=== PATIENT | male | born 1955 | race Caucasian/White ===

== ENCOUNTER 2020-06-05 14:46 | Outpatient (CLI) | payer MEDICARE, OTHER, SELFPAY ==
--- NOTE | 2020-06-05 14:52 | MR_ITS ---
WS: [id number] MRI RIGHT KNEE NONCONTRAST TECHNIQUE: Axial PD, coronal PD fat sat, coronal PD, sagittal PD, and sagittal PD fat-sat images obta ined. CLINICAL INFORMATION: RIGHT KNEE PAIN COMPARISON: None. FINDINGS: Distal quadriceps and patella tendons are intact. Hypertrophic patella. Normal ACL and PCL. Prepatell ar and infrapatellar soft tissue edema. Small lobulated popliteal cyst. Normal lateral meniscus. Acut e appearing tear involving the medial meniscal root with T2 signal abnormality and fluid. Blunting of the anterior and posterior horns. Normal lateral meniscus. Fluid and edema along the medial collateral ligament along the superficial and deep fibers consistent with grade 2 injury. MCL appears intact. Advanced chondromalacia patella. Small amount of subchondra l edema. MR/MR knee RT wo con* [id number] IMPRESSION: 1. Normal anterior and posterior cruciate ligaments. 2. Acute appearing tear involving the medial meniscus at the meniscal root wit h T2 signal abnormality and fluid. 3. Advanced chondromalacia patella with a small amount of subchondral edema. 4. Grade 2 injury involving the medial collateral ligament with edema. MCL and LCL appear intact. 5. Small lobulated popliteal cyst.
== END 2020-06-05 14:47 | disposition home or self-care (01) ==
LOC: RADSHAW 14:51
PROVIDERS: PCP Family Medicine; Visit Provider Family Medicine
DX: M71.21 Synovial cyst of popliteal space [Baker], right knee (principal); R60.0 Localized edema; M22.41 Chondromalacia patellae, right knee; S83.241A Other tear of medial meniscus, current injury, right knee, initial encounter; X58.XXXA Exposure to other specified factors, initial encounter
CPT/HCPCS: 73721

== ENCOUNTER 2020-11-14 12:42 | Outpatient (CLI) | payer MEDICARE, OTHER, SELFPAY ==
[2020-11-14 13:00] VITALS: BP 123/74; PULSE 80; RESP 16; TEMP 36.7; O2SAT 98; BMI 27.1
[2020-11-14 13:22] VITALS: BP 115/69; PULSE 64; RESP 18; O2SAT 95
[2020-11-14 14:22] VITALS: BP 119/61; PULSE 72; RESP 16; TEMP 36.8; O2SAT 93
--- NOTE | 2020-11-23 15:26 | DCPLANNER ---
product management manager had message that patient received the monoclonal antibody infusion. product management manager called phone number [phone], unable to speak with patient at this time, a voicemail was left for patient.
== END 2020-11-14 12:43 | disposition home or self-care (01) ==
LOC: OPS 13:04
PROVIDERS: PCP Family Medicine; Visit Provider Family Medicine
DX: U07.1 COVID-19 (principal)
CPT/HCPCS: 96365

== ENCOUNTER → 2021-11-24 12:14 | Outpatient (BNVA) | payer MEDICARE, OTHER, SELFPAY | PROVIDERS: PCP Family Medicine; Visit Provider Nurse Practitioner | DX: J06.9 Acute upper respiratory infection, unspecified (principal) | CPT/HCPCS: 87400; 87426 ==

== ENCOUNTER 2022-09-18 12:11 | Emergency (ER) | payer MEDICARE, OTHER, SELFPAY ==
[2022-09-18 12:13] VITALS: BP 147/87; PULSE 74; RESP 18; TEMP 36.7; O2SAT 94; BMI 27.5
--- NOTE | 2022-09-18 12:34 | XRR_ITS ---
PROCEDURE INFORMATION: Exam: XR Chest Exam date and time: 09/18/2022 12:45 PM Age: 67 years old Clinical indication: Angina; Additional info: Cpdora TECHNIQUE: Imaging protocol: Radiologic exam of the chest. Views: 1 view. COMPARISON: No relevant prior studies available. FINDINGS: Lungs: Unremarkable. No consolidation. Pleural spaces: Unremarkable. No pleural effusion. No pneumothorax. Heart/Mediastinum: Unremarkable. No cardiomegaly. Bones/joints: Unremarkable. XR/XR chest 1V portable [id number] IMPRESSION: No acute findings.
--- NOTE | 2022-09-18 12:34 | ECG_ITS ---
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 Measurements Intervals [place] Rate: 59 P: 68 FL: 215 QRS: -1 QRSD: 102 T: 44 QT: 407 QTc: 405 Interpretive Statements SINUS BRADYCARDIA WITH FIRST DEGREE AV BLOCK INCOMPLETE RIGHT BUNDLE BRANCH BLOCK [90+ ms QRS DURATION, TERMINAL R IN V1/V2, 40+ ms S IN I/aVL/V4/V5/V6] No previous ECG available for comparison Electronically Signed On 09-18-2022 15:01:59 CDT by Jesús Mark M.D. [email or web address] [email or web address] [email or web address]. john of [facility] [email or web address].[email or web address]/store/NU/[id number] f
[2022-09-18 12:52] LABS: Basophils # 0.1 10^3/uL (0.0-0.1); Basophils % 0.9 %; Eosinophils # 0.3 10^3/uL (0.0-0.8); Eosinophils % 4.6 %; Hematocrit 42.5 % (42.0-52.0); Hemoglobin 14.4 g/dL (11.7-16.6); Lymphocytes % 30.5 %; Mean Corpuscular HGB Conc 33.9 g/dL (30.0-36.0); Mean Corpuscular Hemoglobin 30.2 pg (28.0-34.0); Mean Corpuscular Volume 89.1 fl (80-94); Mean Platelet Volume 9.9 fL (7.4-10.4); Monocytes # 0.5 10^3/uL (0.2-0.9); Monocytes % 7.8 %; Neutrophils # 3.73 10^3/uL (1.8-7.7); Neutrophils % 55.9 %; Nucleated Red Blood Cells % 0 %; Platelet Count 220 10^3/cmm (130-400); Red Blood Count 4.77 10^6/uL (4.1-5.3); Red Cell Distribution Width 12.4 % (12.1-15.1); White Blood Count 6.7 10^3/uL (4.0-10.0)
--- NOTE | 2022-09-18 12:55 | ED_ITS ---
HPI - Chest Pain General: Chief Complaint: Chest Pain Stated Complaint: dizziness, chest pain, fatigue Time Seen by Provider: 09/18/22 12:34 History of Present Illness: Patient is a 67-year-old male that comes to the ED with chest pain, lightheadedness and fatigue. Past medical history of hypertension. Patient states that last night while at rest he started developing some mild chest pain on the left side of his chest. He went to bed and it resolved. He woke up this morning and was feeling fine. He then went and walked 2 miles every morning and then was doing another workout routine. During the workout routine he started feeling lightheaded and was having some mild left-sided chest pain again. He says it resolved before coming to the ED but he has occasional very brief episodes of left-sided chest pain over the past hour. Denies any active chest pain while here in the ED. Denies any shortness of breath. Patient says he did not have any diaphoresis, palpitations, nausea or vomiting during episode. Denies any cardiac history. Patient does endorse feeling more fatigued over the past couple days. Associated symptoms: Deny abdominal pain, dyspnea, fever(s), nausea, palpitations or vomiting Review of Systems Const: Reports: fatigue; Denies: fever(s) or chills Eyes: Denies: change in vision or eye discomfort ENMT: Denies: throat pain, odynophagia, nasal discharge or nasal congestion Card: Reports: chest pain and lightheadedness; Denies: palpitations, edema, swelling of feet/ankles, dyspnea on exertion or orthopnea Resp: Denies: dyspnea, productive cough or non-productive cough GI: Denies: abdominal pain, nausea, vomiting, diarrhea, constipation or hematochezia : Denies: flank pain, difficulty urinating, dysuria or hematuria Musc: Denies: neck pain, back pain or extremity swelling Skin/Breast: Denies: rash or new lesions Neuro: Denies: headache(s), numbness in extremities or weakness in extremities PFS ED PFSH: Medical History COVID Hypertension Surgical History No pertinent past surgical history Social History Smoking and tobacco status: former smoker Physical Exam Const: COMMON NORMALS: no acute distress, patient oriented x3 and alert GENERAL APPEARANCE: cooperative and comfortable HENMT: COMMON NORMALS: normocephalic HEAD & SCALP: normocephalic MOUTH: Normal oral and palatal mucosa present THROAT: posterior oropharynx normal and uvula midline Eye: COMMON NORMALS: Equal, round and reactive pupils present and conjunctivae normal GENERAL EYE: appearance normal, both eyes and all related structures CONJUNCTIVA: Yes conjunctivae normal PUPIL: Yes Equal, round and reactive pupils present Neck/C-Spine: COMMON NORMALS: supple GENERAL: Yes normal visual inspection Chest: CHEST: No tenderness Resp: COMMON NORMALS: normal respiratory effort, No retractions, No use of accessory muscles and clear to auscultation bilaterally AUSCULTATION: clear to auscultation bilaterally Cardio: COMMON NORMALS: regular rate, regular rhythm, S1 normal heart sound present, S2 normal heart sound present, No gallops present (Cardio), No clicks present (Cardio), No murmurs present (Cardio) and Peripheral pulses 2+ throughout RATE: regular rate RHYTHM: regular rhythm HEART SOUNDS: S1 normal heart sound present and S2 normal heart sound present PERIPHERAL PULSES: Peripheral pulses 2+ throughout GI: COMMON NORMALS: Normal to inspection, nondistended, normoactive bowel elizabeth nds present, Soft to palpation, non-tender and no masses PALPATION: Yes Soft to palpation : COMMON NORMALS: Yes no CVA tenderness BLADDER/KIDNEY EXAM: Yes no CVA tenderness Back/Pelvis: COMMON NORMALS: no CVA tenderness Extremity: COMMON NORMALS: normal to inspection Neuro: COMMON NORMALS: patient oriented x3 SENSORIUM/ORIENTATION: Yes alert GAIT: Yes Normal gait present Skin: GENERAL SKIN EXAM: dry skin Course Vital Signs: Vital signs: Vital Signs Temperature 98.0 F 09/18/22 12:13 Pulse Rate 63 09/18/22 15:40 Respiratory Rate 14 09/18/22 15:40 Blood Pressure 128/83 09/18/22 15:40 Pulse Oximetry 98 09/18/22 15:40 Oxygen Delivery Me thod Room Air 09/18/22 14:12 MDM - Chest Pain Medical Decision Making Patient is a 67-year-old male that comes to the ED with chest pain, lightheadedness and fatigue. Past medical history of hypertension. Patient states that last night while at rest he started developing some mild chest pain on the left side of his chest. He went to bed and it resolved. He woke up this morning and was feeling fine. He then went and walked 2 miles every morning and then was doing another workout routine. During the workout routine he started feeling lightheaded and was having some mild left-sided chest pain again. He says it resolved before coming to the ED but he has occasional very brief episodes of left-sided chest pain over the past hour. Denies any active chest pain while here in the ED. Denies any shortness of breath. Patient says he did not have any diaphoresis, palpitations, nausea or vomiting during episode. Denies any cardiac history. Patient does endorse feeling more fatigued over the past couple days. Vital stable. Patient appears nontoxic in no acute distress or pain. Exam is benign. CBC and CMP is unremarkable. Chest x-ray shows no acute findings. EKG showed sinus bradycardia at [address] segment elevation or depression seen. Baseline troponin is 13 and 2-hour troponin was 11.9. BNP 36. heart score is 3 and he has not had any chest pain here in the ED. I placed an order with case management for patient to be set up with an outpatient sestamibi cardiac stress test. Patient was stable for discharge home and diagnosed with atypical chest pain. He was told to follow-up with his PCP in the next week for reevaluation. Return to ED precautions given. Patient under stood and agreed with plan. Lab Data I reviewed the patient's lab results. 09/18/22 12:38 09/18/22 12:38 Radiology Impressions Chest X-Ray 09/18/22 12:34 IMPRESSION: No acute findings. Laboratory Results WBC 6.7 10^3/uL (4.0-10.0) 09/18/22 12:38 RBC 4.77 10^6/uL (4.1-5.3) 09/18/22 12:38 Hgb 14.4 g/dL (11.7-16.6) 09/18/22 12:38 Hct 42.5 % (42.0-52.0) 09/18/22 12:38 MCV 89.1 fl (80-94) 09/18/22 12:38 MCH 30.2 pg (28.0-34.0) 09/18/22 12:38 MCHC 33.9 g/dL (30.0-36.0) 09/18/22 12:38 RDW 12.4 % (12.1-15.1) 09/18/22 12:38 Plt Count 220 10^3/cmm (130-400) 09/18/22 12:38 MPV 9.9 fL (7.4-10.4) 09/18/22 12:38 Neut % (Auto) 55.9 % 09/18/22 12:38 Lymph % (Auto) 30.5 % 09/18/22 12:38 Sumner % (Auto) 7.8 % 09/18/22 12:38 Eos % (Auto) 4.6 % 09/18/22 12:38 Baso % (Auto) 0.9 % 09/18/22 12:38 Neut # (Auto) 3.73 10^3/uL (1.8-7.7) 09/18/22 12:38 Lymph # (Auto) 2.0 10^3/uL (0.8-4.8) 09/18/22 12:38 Sumner # (Auto) 0.5 10^3/uL (0.2-0.9) 09/18/22 12:38 Eos # (Auto) 0.3 10^3/uL (0.0-0.8) 09/18/22 12:38 Baso # (Auto) 0.1 10^3/uL (0.0-0.1) 09/18/22 12:38 Nucleated RBC % (auto) 0 % 09/18/22 12:38 Nucleated RBCs # 0.0 /100WBC 09/18/22 12:38 Sodium 140 mmol/L (136-145) 09/18/22 12:38 Potassium 4.0 mmol/L (3.5-5.1) 09/18/22 12:38 Chloride 104 mmol/L (98-107) 09/18/22 12:38 Carbon Dioxide 24 mmol/L (22-29) 09/18/22 12:38 Anion Gap 16.0 (5-19) 09/18/22 12:38 BUN 15 mg/dL (8-23) 09/18/22 12:38 Creatinine 0.8 mg/dL (0.7-1.2) 09/18/22 12:38 GFR Calculation 96.1 mL/min (90-130) 09/18/22 12:38 Glucose 92 mg/dL (65-115) 09/18/22 12:38 Calculated Osmolality 290 mOsm/kg (285-295) 09/18/22 12:38 Calcium 9.4 mg/dL (8.5-10.5) 09/18/22 12:38 Total Bilirubin 0.3 mg/dL (0.15-1.2) 09/18/22 12:38 AST 18 U/L (0-40) 09/18/22 12:38 ALT 17 U/L (0-41) 09/18/22 12:38 Alkaline Phosphatase 66 U/L (40-130) 09/18/22 12:38 Troponin T Baseline 13 ng/L (0-15) 09/18/22 12:38 Troponin T 120 Minute 11.29 ng/L (0-15) 09/18/22 14:22 Delta Troponin T -1.71 ABS# (0-10) L 09/18/22 14:22 NT-Pro-B Natriuret Pep 36 pg/mL (0-125) 09/18/22 12:38 Total Protein 6.4 g/dL (6.6-8.7) L 09/18/22 12:38 Albumin 4.3 g/dL (3.5-5.2) 09/18/22 12:38 Globulin 2.1 g/dL (1.3-4.6) 09/18/22 12:38 Urine Color Light yellow (Yellow) 09/18/22 14:27 Urine Appearance Clear (CLEAR) 09/18/22 14:27 Urine pH 7 (5-7) 09/18/22 14:27 Ur Specific [place] 1.010 (1.005-1.030) 09/18/22 14:27 Urine Protein Neg (Negative) 09/18/22 14:27 Urine Glucose (UA) Norm (Normal) 09/18/22 14:27 Urine Ketones Negative (Negative) 09/18/22 14:27 Urine Blood Neg (Negative) 09/18/22 14:27 Urine Nitrate Negative (Negative) 09/18/22 14:27 Urine Bilirubin Neg (Negative) 09/18/22 14:27 Urine Urobilinogen Norm mg/dL (Negative) 09/18/22 14:27 Ur Leukocyte Esterase Negative (Negative) 09/18/22 14:27 EKG Data EKG 1: EKG interpretation date: 09/18/22 Interpretation: Sinus bradycardia, 59 bpm, possible first-degree AV block. No ST segment elevation or depression seen. Discharge Plan Discharge Patient Disposition: Home Clinical Impression: Atypical chest pain Condition: Stable Prescriptions: No Action valacyclovir 1 gram tablet 1,000 mg PO TID Qty: 21 0RF Rx Instructions: x 7 days for shingles prednisone 20 mg tablet 20 mg PO DAILY Qty: 5 0RF Rx Instructions: x 5 days for inflammation tamsulosin 0.4 mg capsule PO albuterol sulfate [ProAir HFA] 90 mcg/actuation HFA aerosol inhaler 2 puff inhalation Q6H PRN lisinopril 10 mg tablet 10 mg PO DAILY doxycycline hyclate 100 mg capsule 100 mg PO BID 10 Days Qty: 20 0RF lisinopril-hydrochlorothiazide 10-12.5 mg tablet See Rx Instructions .ROUTE .COMPLEX Qty: 90 3RF Dose Instruction: TAKE 1 TABLET BY MOUTH EVERY DAY Rx Instructions: TAKE 1 TABLET BY MOUTH EVERY DAY omeprazole 20 mg capsule,delayed release(DR/EC) See Rx Instructions .ROUTE .COMPLEX Qty: 180 3RF Dose Instruction: TAKE 1 CAPSULE BY MOUTH TWICE A DAY Rx Instructions: TAKE 1 CAPSULE BY MOUTH TWICE A DAY Discharge Orders: Discharge ED (Routine); Ordered 09/18/22 Ordered By: Izaiah Chandler Referrals: Janes Huffman, [Primary Care Provider] - Discharge Diet: Regular Discharge Activity: Increase activity as tolerated Patient Instructions: Chest Pain (ED), Noncardiac Chest Pain (ED) Activity Restrictions/Additional Instructions: Follow-up with medical provider as directed. Case management should contact you in the next several days to set up an appointment for an outpatient cardiac stress test. Continue taking all home medications as previously prescribed. Re turn to the ER or your medical provider if condition worsens. Please read and understand discharge instructions. Thank you for choosing [facility] for your healthcare needs today. Please realize this is an emergency room and that we are providing you with a medical screening exam and this may not be complete and all inclusive of all the testing and or work up that you may need to determine your ailment or severity of your illness. It is very important that you follow up as instructed or that you return to the Emergency Department should you have concerns or if your condition changes or worsens in any way. Coding Level of Care Code ED Equipment Operator/Laborer for Mic Dubois
[2022-09-18 13:14] LABS: Troponin(5th) Baseline 13 ng/L (0-15)
[2022-09-18 13:20] VITALS: BP 146/87; PULSE 53; RESP 13; O2SAT 97
[2022-09-18 13:22] LABS: Alanine Aminotransferase 17 U/L (0-41); Albumin Level 4.3 g/dL (3.5-5.2); Alkaline Phosphatase 66 U/L (40-130); Aspartate Amino Transferase 18 U/L (0-40); Blood Urea Nitrogen 15 mg/dL (8-23); Calcium 9.4 mg/dL (8.5-10.5); Carbon Dioxide 24 mmol/L (22-29); Chloride 104 mmol/L (98-107); Globulin 2.1 g/dL (1.3-4.6); Glomerular Filtration Rate 96.1 mL/min (90-130); Glucose 92 mg/dL (65-115); NT Pro B Type Natriuretic Pept 36 pg/mL (0-125); Osmolality Calculated 290 mOsm/kg (285-295); Sodium 140 mmol/L (136-145); Total Bilirubin 0.3 mg/dL (0.15-1.2); Total Protein 6.4 g/dL (6.6-8.7)
[2022-09-18 13:30] VITALS: BP 147/78; PULSE 57; RESP 12; O2SAT 96
[2022-09-18 14:12] VITALS: BP 145/89; PULSE 54; RESP 15; O2SAT 98
--- NOTE | 2022-09-18 14:34 | ECG_ITS ---
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 Measurements Intervals [place] Rate: 49 P: 58 HI: 228 QRS: -6 QRSD: 103 T: 32 QT: 428 QTc: 387 Interpretive Statements SINUS BRADYCARDIA WITH FIRST DEGREE AV BLOCK INCOMPLETE RIGHT BUNDLE BRANCH BLOCK [90+ ms QRS DURATION, TERMINAL R IN V1/V2, 40+ ms S IN I/aVL/V4/V5/V6] No previous ECG available for comparison Electronically Signed On 09-18-2022 15:01:27 CDT by Jesús Mark M.D. [email or web address]/store/[id number]
[2022-09-18 14:52] LABS: Add Urine Microscopic? NO; Charge for UA Resulting for Rev
[2022-09-18 14:58] LABS: Troponin 5 2HR 11.29 ng/L (0-15)
[2022-09-18 15:07] LABS: Troponin 5 2HR Delta -1.71 ABS# (0-10)
[2022-09-18 15:24] LABS: Urine Color Light yellow (Yellow)
[2022-09-18 15:25] LABS: Bilirubin Urine Neg (Negative); Blood Urine Neg (Negative); Glucose Urine UA Norm (Normal); Ketones Urine Negative (Negative); Leukocyte Esterase Urine Negative (Negative); Nitrate Urine Negative (Negative); Protein Urine Neg (Negative); Urine Appearance Clear (CLEAR); Urobilinogen Urine Norm (Negative); pH Urine 7 (5-7)
[2022-09-18 15:40] VITALS: BP 128/83; PULSE 63; RESP 14; O2SAT 98
--- NOTE | 2022-09-19 12:38 | PC.SOCIAL ---
Addendum entered by Kezia Pérez 10/03/22 16:27: Patient had an outpatient stress test scheduled for 10.02.22 - patient did attend appointment. Original Note: Orders for stress test faxed to [facility] scheduling at this time.
== END 2022-09-18 15:42 | disposition home or self-care (01) ==
PROVIDERS: Emergency Provider Physician Assistant; PCP Family Medicine
DX: R07.89 Other chest pain (principal); R00.1 Bradycardia, unspecified; R42 Dizziness and giddiness; R53.83 Other fatigue
CPT/HCPCS: 36415; 71045; 80053; 81003; 83880; 84484; 85025; 93005; 99285

== ENCOUNTER 2022-10-02 08:47 | Outpatient (CLI) | payer MEDICARE, OTHER, SELFPAY ==
[2022-10-02 09:25] VITALS: BMI 28.0
--- NOTE | 2022-10-02 09:26 | ECG_ITS ---
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 Interpretive Statements NAME OF STUDY: LEXISCAN SESTAMIBI STRESS TEST INDICATION: Chest Pain PROCEDURE: At the baseline, the EKG revealed normal sinus rhythm with normal ST Ts. The baseline heart was 51 bpm with a blood pressue of 144/79 mm of Hg Lexiscan was infused over a period of 20 seconds. A total of 0.4 milligrams of Lexiscan was infused. The stress phase was continued for a total of 5 minutes. Heart rate at the end of the stress phase was 74 bpm with a blood pressure 122/77 mm of Hg. The EKG at the peak infusion revealed no significant changes. Sestamibi was injected 20 seconds after the Lexiscan infusion. Heart rate at the end of the recovery phase was 73 bpm with a blood pressure of 126/79 mm of Hg. CONCLUSION: 1. No significant EKG changes with the LexiScan infusion 2. No LexiScan induced chest pain or cardiac arrhythmia 3. Normal blood pressure and heart rate response 4. Sestamibi/sestamibi perfusion scan pending; see separate report. Electronically Signed On 10-03-2022 17:59:45 CDT by Laurie Keene M.D. [id number]
--- NOTE | 2022-10-02 09:26 | NMCV_ITS ---
NM edgard perf SPECT r/s* 10003 TaurusJassi Age: 67 Gender: M : 1955 Exam Date: 10/02/2022 09:55 Ordering Phys: Izaiah Chandler Technologist: BRENDAN Mina Exam Location: [facility] Indications: Chest Pain STRESS TEST Please [facility] for [facility] IMAGE PROTOCOL Rest/Stress 1 Lexiscan Day Radiopharmaceutical Dose (mCi) Administration Site Administered by Rest: Tc-99m 11.0 IV BRENDAN Harris Sestamibi Stress:Tc-99m 32.6 IV BRENDAN Harris Sestamibi Rest: 02-Oct-2022 60 Discovery 630 Stress: 02-Oct-2022 30 Discovery 630 0.4mg Lexiscan. Images obtained in supine and prone position. SPECT RESULTS Technical Quality: Excellent Raw Data Analysis: Normal Image Corrections: No attenuation or motion correction applied Summed Stress Score: 0 Summed Rest Score: 4 Summed Difference Score: 0 PERFUSION FINDINGS Small area of decreased eccentric wear noted in the apical inferior and LV apex. No significant reversibility was noted in this region. FUNCTIONAL RESULTS (calculated via Gated SPECT) Stress Image LV EF (%): 57 Stress EDV (mL):170 TID: 1.08 Stress ESV (mL):73 FUNCTIONAL FINDINGS: Segmental wall motion analysis revealing no gross wall motion abnormalities IMPRESSIONS 1. Small area of persistent decreased tracer uptake in the apical inferior and LV apex suggesting myocardial scarring versus attenuation artifact 2. Normal LV ejection fraction of 57%. 3. LV wall motion analysis revealing no gross wall motion abnormalities. 4. Mildly dilated LV cavity -end-systolic volume was 73 mL Low probability for coronary ischemia, based on the above findings Dr Laurie Keene MD FACC (Electronically Signed) Final Date: 02 October 2022 17:51 S
[2022-10-02] MEDS: regadenoson 0.4 Mg/5 ml Syringe IVP (10:35)
[2022-10-02 10:45] VITALS: BP 128/75; PULSE 72
== END 2022-10-02 08:48 | disposition home or self-care (01) ==
LOC: CDL 08:48
PROVIDERS: PCP Family Medicine; Visit Provider Physician Assistant
DX: R07.9 Chest pain, unspecified (principal)
CPT/HCPCS: 36415; 78452; 93017; 96374; A9500; J2785

== ENCOUNTER → 2022-10-14 07:54 | Outpatient (BNVA) | payer MEDICARE, OTHER, SELFPAY | PROVIDERS: PCP Family Medicine; Visit Provider Family Medicine | DX: R42 Dizziness and giddiness (principal); H90.5 Unspecified sensorineural hearing loss; H93.13 Tinnitus, bilateral; R68.82 Decreased libido; R79.89 Other specified abnormal findings of blood chemistry; Z13.6 Encounter for screening for cardiovascular disorders; E03.9 Hypothyroidism, unspecified | CPT/HCPCS: 80053; 80061; 82040; 82607; 84270; 84403; 84443; 85025 ==

== ENCOUNTER 2022-11-12 09:19 | Outpatient (CLI) | payer MEDICARE, OTHER, SELFPAY ==
--- NOTE | 2022-11-12 09:30 | MR_ITS ---
WS: [id number] MRI HEAD WITH CONTRAST TECHNIQUE: Sagittal T1, T2 axial, T2 axial FLAIR, axial susceptibility weighted imaging, axial diffus ion weighted images, and coronal T2 images were obtained. Pre and post-T1 axial and post T1 coronal i mages. ADC and FSPGR images. CLINICAL INFORMATION: hearing loss, sensorineuronal COMPARISON: None. FINDINGS: Proximal 7th and 8th cranial nerves are normal in appearance. Normal trigeminal nerve root entry zone s. No evidence of enhancing IAC or CP angle mass. Paranasal sinuses are well aerated. Mastoid air sohail ls are well aerated. Normal posterior fossa. Normal vascular flow voids at the skull base. No extra-axial fluid collection s. No evidence of mass or mass effect. Normal posterior nasopharynx and parapharyngeal fat. No hemosi claudette on susceptibility weighted images. Minimal small vessel changes. Mild parenchymal volume loss. Normal optic chiasm and pituitary infundibulum. No abnormal gadolinium enhancement. Normal dural veno us sinuses. No other suspicious findings. IMPRESSION: 1. No evidence of enhancing IAC or CP angle mass. Normal trigeminal nerve root entry zones. 2. Paranasal sinuses and mastoid air cells are well aerated. 3. No hemosiderin susceptibility-weighted images. 4. Minimal small vessel changes with mild parenchymal volume loss.
[2022-11-12] MEDS: gadobenate dimeglumine 20 mL vial IV (10:25)
== END 2022-11-12 09:20 | disposition home or self-care (01) ==
LOC: RAD 09:20
PROVIDERS: PCP Family Medicine; Visit Provider Family Medicine
DX: H90.5 Unspecified sensorineural hearing loss (principal)
CPT/HCPCS: 70553; A9577

== ENCOUNTER → 2023-12-08 12:34 | Outpatient (BNVA) | payer MEDICARE, OTHER, SELFPAY | PROVIDERS: PCP Family Medicine; Visit Provider Family Medicine | DX: Z00.00 Encounter for general adult medical examination without abnormal findings (principal); M19.90 Unspecified osteoarthritis, unspecified site; M25.562 Pain in left knee | CPT/HCPCS: 80053; 80061; G0103 ==

== ENCOUNTER 2024-02-12 11:00 | Outpatient (CLI) | payer MEDICARE, OTHER, SELFPAY ==
--- NOTE | 2024-02-12 11:00 | MR_ITS ---
WS: [id number] MRI LEFT KNEE NONCONTRAST AND CONTRAST TECHNIQUE: Axial PD, coronal PD fat sat, coronal PD, sagittal PD, and sagittal PD fat-sat images obta ined. Post gadolinium imaging was obtained. CLINICAL INFORMATION: Continued knee pain despite conservative tx. FINDINGS: Advanced tricompartmental degenerative arthritis. Hypertrophic patella. Grade IV chondromalacia ybarra la. Advanced degenerative narrowing medial lateral joint compartment with chronic thinning of the med ial and lateral meniscus. Chronic cystic degenerative changes with grade IV chondromalacia medial zaida nt compartment with subchondral edema. Distal quadriceps and patella tendons are intact. ACL and PCL appear intact. Lateral meniscus appears intact. Tear involving the posterior horn medial meniscus extending to the articular surface. Periph eral extrusion of the medial meniscus. Medial and lateral collateral ligaments appear intact. Cystic degenerative change involving the head of the fibula. Moderate suprapatellar effusion diffuse irregular synovial thickening with enhancement involving the suprapatella bursa with areas of frond-like thickening. Findings can be seen with infectious or infla mmatory synovitis. Differential considerations are broad but include rheumatoid arthritis, psoriatic arthritis, degenerative osteoarthritis, lipoma arborescens. No visualized loose bodies. MR/MR knee LT wo/w con [id number] IMPRESSION: 1. ACL and PCL are intact. 2. Advanced tricompartmental arthritis with grade IV chondromalacia patella wi th subchondral edema. 3. Complex tear of the posterior horn medial meniscus with radial and longitud inal components. 4. Peripheral extrusion of the medial meniscus. 5. Moderate suprapatellar effusion with diffuse synovial thickening with irreg ularity and enhancement. Findings are nonspecific but can be seen with infectio us or inflammatory arthropathies such as rheumatoid and psoriatic arthritis, os teoarthritis, and lipoma arborescens. No evidence of bony osteomyelitis. 6. Subchondral cystic changes involving the medial femoral condyle. Outbridge grading: grade IV: full-thickness cartilage loss with underlying bone reactive changes
[2024-02-12] MEDS: gadobenate dimeglumine 20 mL vial IV (11:51)
== END 2024-02-12 11:05 | disposition home or self-care (01) ==
PROVIDERS: PCP Family Medicine; Visit Provider Family Medicine
DX: M17.12 Unilateral primary osteoarthritis, left knee (principal); M22.42 Chondromalacia patellae, left knee; M23.222 Derangement of posterior horn of medial meniscus due to old tear or injury, left knee; M23.204 Derangement of unspecified medial meniscus due to old tear or injury, left knee; M25.462 Effusion, left knee
CPT/HCPCS: 73723

== ENCOUNTER → 2024-02-19 09:23 | Outpatient (BNVA) | payer MEDICARE, OTHER, SELFPAY | PROVIDERS: PCP Family Medicine; Visit Provider Student in an Organized Health Care Education/Training Program | DX: M25.562 Pain in left knee (principal); M17.12 Unilateral primary osteoarthritis, left knee | CPT/HCPCS: 20610; 73560; 73565; 99204; J3301 ==

== ENCOUNTER 2024-02-20 06:00 | Outpatient (CLI) | payer MEDICARE, OTHER, SELFPAY | END 2024-02-20 23:59 | disposition home or self-care (01) | LOC: SPT 02-23 09:49 | PROVIDERS: Visit Provider Student in an Organized Health Care Education/Training Program | DX: Z46.89 Encounter for fitting and adjustment of other specified devices (principal); M17.12 Unilateral primary osteoarthritis, left knee | CPT/HCPCS: L1852 ==

== ENCOUNTER → 2024-05-25 09:16 | Outpatient (BNVA) | payer MEDICARE, OTHER, SELFPAY | PROVIDERS: Visit Provider Student in an Organized Health Care Education/Training Program | DX: M17.12 Unilateral primary osteoarthritis, left knee (principal) | CPT/HCPCS: 20610; 99213; J3301 ==

== ENCOUNTER → 2024-07-14 10:08 | Outpatient (BNVA) | payer MEDICARE, OTHER, SELFPAY | PROVIDERS: PCP Family Medicine; Visit Provider Student in an Organized Health Care Education/Training Program | DX: M25.561 Pain in right knee (principal); M25.562 Pain in left knee; M17.11 Unilateral primary osteoarthritis, right knee | CPT/HCPCS: 20610; 73560; 73565; 99214; J3301; J9999 ==

== ENCOUNTER 2024-07-14 14:20 | Outpatient (CLI) | payer MEDICARE, OTHER, SELFPAY | END 2024-07-14 14:21 | disposition home or self-care (01) | LOC: SPT 14:22 | PROVIDERS: PCP Family Medicine; Visit Provider Student in an Organized Health Care Education/Training Program | DX: Z46.89 Encounter for fitting and adjustment of other specified devices (principal); M17.11 Unilateral primary osteoarthritis, right knee | CPT/HCPCS: 97760; L1812 ==

== ENCOUNTER → 2024-08-25 10:13 | Outpatient (BNVA) | payer MEDICARE, OTHER, SELFPAY | PROVIDERS: PCP Family Medicine; Visit Provider Student in an Organized Health Care Education/Training Program | DX: M25.562 Pain in left knee (principal); M17.0 Bilateral primary osteoarthritis of knee | CPT/HCPCS: 20610; 99213 ==

== ENCOUNTER → 2024-10-20 09:36 | Outpatient (BNVA) | payer MEDICARE, OTHER, SELFPAY | PROVIDERS: PCP Family Medicine; Visit Provider Student in an Organized Health Care Education/Training Program | DX: M17.11 Unilateral primary osteoarthritis, right knee (principal) | CPT/HCPCS: 20610; 99213; J3301; J9999 ==

== ENCOUNTER → 2024-11-19 11:01 | Outpatient (BNVA) | payer MEDICARE, OTHER, SELFPAY | PROVIDERS: PCP Family Medicine; Visit Provider Family Medicine | DX: Z00.00 Encounter for general adult medical examination without abnormal findings (principal); R68.82 Decreased libido; M19.90 Unspecified osteoarthritis, unspecified site; E03.9 Hypothyroidism, unspecified; R79.89 Other specified abnormal findings of blood chemistry | CPT/HCPCS: 80053; 80061; 82040; 82306; 82607; 84270; 84403; 84443; 85025; G0103 ==

== ENCOUNTER → 2024-11-23 15:21 | Outpatient (BNVA) | payer MEDICARE, OTHER, SELFPAY | PROVIDERS: PCP Family Medicine; Visit Provider Student in an Organized Health Care Education/Training Program | DX: M17.12 Unilateral primary osteoarthritis, left knee (principal) | CPT/HCPCS: 20610; 99213; J3301; J9999 ==

== ENCOUNTER 2024-12-01 08:08 | Outpatient (CLI) | payer MEDICARE, OTHER, SELFPAY ==
--- NOTE | 2024-12-01 08:15 | US_ITS ---
WS: [id number] Complete ABDOMINAL ULTRASOUND HISTORY: R10.9 - Unspecified abdominal pain COMPARISON: None available. Liver: 15.8 cm in length. Normal size liver and echogenicity. No bile duct dilatation or mass. Portal Vein: Normal hepatopetal flow with monophasic waveform. Gallbladder: Normally distended gallbladder. There is mild wall thickening but no pericholecystic fluid. Nonshadowing focus within the lumen of the gallbladder measures 5.7 mm. There is an additional smaller noncalcified nodule also. These are probably small polyps. Stone adherent to the gallbladder wall within the differential. CBD: 0.3 cm Pancreas: Echogenic pancreas. Right kidney: 11.2 cm x 5.7 x 5.9 cm. Cortex:1.2 cm. Normal size kidney. Cortical cyst lower pole 1.7 x 2.0 x 1.8 cm. Left kidney: 12.4 cm x 5.1 cm x 5.3 cm. Cortex: 1.1 cm. Normal size kidney. Exophytic cyst from the upper pole 1.3 x 1.1 x 0.9 cm. No hydronephrosis or solid mass. Spleen: 11.1 cm. Normal size and echogenicity. Aorta and IVC: Unremarkable abdominal aorta and IVC. US/US abdomen complete* [id number] Impression: 1. Mild gallbladder wall thickening with no evidence for acute cholecystitis. Nonshadowing foci within the gallbladder are most likely small gallbladder poly ps. 2. Bilateral renal cysts. No solid mass or obstruction. 3. No common bile duct dilatation.
== END 2024-12-01 08:09 | disposition home or self-care (01) ==
LOC: RAD 08:09
PROVIDERS: PCP Family Medicine; Visit Provider Family Medicine
DX: R10.9 Unspecified abdominal pain (principal); K82.8 Other specified diseases of gallbladder; N28.1 Cyst of kidney, acquired
CPT/HCPCS: 76700

== ENCOUNTER → 2025-01-26 10:06 | Outpatient (BNVA) | payer MEDICARE, OTHER, SELFPAY | PROVIDERS: PCP Family Medicine; Visit Provider Student in an Organized Health Care Education/Training Program | DX: M17.11 Unilateral primary osteoarthritis, right knee (principal) | CPT/HCPCS: 20610; 99213; J3301; J9999 ==

== ENCOUNTER → 2025-03-02 12:46 | Outpatient (BNVA) | payer MEDICARE, OTHER, SELFPAY | PROVIDERS: PCP Family Medicine; Visit Provider Student in an Organized Health Care Education/Training Program | DX: M17.12 Unilateral primary osteoarthritis, left knee (principal); Z71.89 Other specified counseling | CPT/HCPCS: 20610; 99213; J3301; J9999 ==